=== PATIENT | female | born 1990 | race Caucasian/White ===

== ENCOUNTER 2017-04-13 04:21 | Emergency (ER) | payer MEDICAID ==
[~2017-04-13] VITALS: Ht 167.6 cm; Wt 55.0 kg
[~2017-04-13 04:21] MED LIST: ALPR1 PO; CHLO25 PO; HYDR50 PO; OXYC15TA PO
[2017-04-13 04:23] VITALS: BP 149/84; PULSE 84; RESP 18; O2SAT 97
[2017-04-13] MEDS ORDERED: LORA-475 PO (04:31)
[2017-04-13] MEDS ORDERED: SERO50TA PO (04:31)
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
[2017-04-13] MEDS ORDERED: levETIRAcetam 500 MG TAB PO ONE (04:45)
[2017-04-13] MEDS ORDERED: LORazepam 1 MG TAB PO ONE (04:45)
[2017-04-13 06:54] LABS: AUTOMATED NEUTROPHIL # 5.4 TH/MM3 (1.8-7.7); BASOPHIL % 0.3 % (0.0-2.0); EOSINOPHIL % 0.1 % (0.0-4.0); HEMATOCRIT 40.5 % (35.0-46.0); HEMO FLAGS DIFF FINAL; MEAN CELL VOLUME 89.2 FL (80.0-100.0); MEAN CORPUSCULAR HEMOGLOBIN 30.2 PG (27.0-34.0); MEAN CORPUSCULAR HGB CONC 33.9 % (32.0-36.0); NEUT % 68.6 % (16.0-70.0); PLATELET COUNT 192 TH/MM3 (150-450); RED BLOOD COUNT 4.54 MIL/MM3 (4.00-5.30); WHITE BLOOD COUNT 7.8 TH/MM3 (4.0-11.0)
[2017-04-13 07:23] LABS: ANION GAP 9 MEQ/L (5-15); AST (GOT) 23 U/L (15-37); BICARBONATE 24.9 MEQ/L (21.0-32.0); BLOOD UREA NITROGEN 3 MG/DL (7-18); CHLORIDE 111 MEQ/L (98-107); GLOMERULAR FILTRATION RATE 122 ML/MIN (>89); SODIUM (NA) 145 MEQ/L (136-145)
[2017-04-13] MEDS ORDERED: LEVE250 PO (07:25)
[2017-04-13 07:27] LABS: ALKALINE PHOSPHATASE 85 U/L (45-117); ALT (GPT) 32 U/L (10-53); TOTAL BILIRUBIN ADULT 0.7 MG/DL (0.2-1.0)
[2017-04-13 09:42] VITALS: BP 121/78; PULSE 100; RESP 16; O2SAT 100
== END 2017-04-13 11:33 | disposition home or self-care (01) ==
LOC: NEPE 04:21
DX: R56.9 Unspecified convulsions (principal)
CPT/HCPCS: 80053; 80307; 84703; 85025; 99283

== ENCOUNTER 2017-07-04 19:23 | Emergency (ER) | payer MEDICAID ==
[~2017-07-04] VITALS: Ht 167.6 cm; Wt 55.0 kg
[~2017-07-04 19:23] MED LIST changes: -ALPR1 PO; -CHLO25 PO; -HYDR50 PO; +LEVE250 PO; +LORA-475 PO; -OXYC15TA PO; +SERO50TA PO
[2017-07-04 19:27] VITALS: BP 135/94; PULSE 98; RESP 22; O2SAT 98
[2017-07-04] MEDS ORDERED: CLON0.5T PO (19:37)
[2017-07-04 19:38] VITALS: O2SAT 99
[2017-07-04] MEDS ORDERED: ONDANSETRON HCL 4 MG/2 ML VIAL IV ONE ×2 (19:45→22:00)
[2017-07-04] MEDS ORDERED: SODIUM CHLOR 0.9% 1000 ML INJ 1,000 ML IV ONE (19:45)
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
--- NOTE | 2017-07-04 20:20 | RADRPT ---
EXAM DATE/TIME: 07/04/2017 19:53 [facility] COMPARISON: No previous studies available for comparison. INDICATIONS : Cough. MEDICAL HISTORY : None. SURGICAL HISTORY : None. ENCOUNTER: Initial ACUITY: 1 day PAIN SCORE: 0/10 LOCATION: Bilateral chest FINDINGS: A single view of the chest demonstrates the lungs to be symmetrically aerated without evidence of mas s, infiltrate or effusion. The cardiomediastinal contours are unremarkable. Osseous structures are intact. CONCLUSION: No evidence of acute cardiopulmonary disease. Alphonse Loyd MD on July 04, 2017 at 20:18 Board Certified Radiologist. This report was verified electronically.
[2017-07-04 20:30] LABS: AUTOMATED NEUTROPHIL # 5.1 TH/MM3 (1.8-7.7); BASOPHIL % 0.6 % (0.0-2.0); EOSINOPHIL # 0.1 TH/MM3 (0-0.4); EOSINOPHIL % 1.8 % (0.0-4.0); HEMO FLAGS DIFF FINAL; LYMPH % 27.7 % (9.0-44.0); LYMPHOCYTE # 2.2 TH/MM3 (1.0-4.8); MEAN CELL VOLUME 87.9 FL (80.0-100.0); MEAN CORPUSCULAR HEMOGLOBIN 30.1 PG (27.0-34.0); MEAN CORPUSCULAR HGB CONC 34.3 % (32.0-36.0); MONO % 5.2 % (0.0-8.0); NEUT % 64.7 % (16.0-70.0); PLATELET COUNT 190 TH/MM3 (150-450); RED BLOOD COUNT 4.66 MIL/MM3 (4.00-5.30); RED CELL DISTRIBUTION WIDTH 13.8 % (11.6-17.2); WHITE BLOOD COUNT 7.8 TH/MM3 (4.0-11.0)
[2017-07-04 20:39] LABS: ANION GAP 10 MEQ/L (5-15); APTT (PATIENT) 25.7 SEC (24.3-30.1); PROTHROMBIN TIME - PATIENT 11.4 SEC (9.8-11.6)
[2017-07-04 20:48] LABS: ALKALINE PHOSPHATASE 64 U/L (45-117); ALT (GPT) 91 U/L (10-53); AST (GOT) 52 U/L (15-37); BICARBONATE 24.2 MEQ/L (21.0-32.0); BLOOD UREA NITROGEN 8 MG/DL (7-18); CHLORIDE 106 MEQ/L (98-107); GLOMERULAR FILTRATION RATE 81 ML/MIN (>89); POTASSIUM 3.2 MEQ/L (3.5-5.1); SODIUM (NA) 140 MEQ/L (136-145); TOTAL BILIRUBIN ADULT 1.4 MG/DL (0.2-1.0)
[2017-07-04 20:49] LABS: ACETAMINOPHEN LESS THAN 2.0 MCG/ML (10.0-30.0); ALCOHOL LESS THAN 3 MG/DL (0-5)
[2017-07-04 21:00] VITALS: BP 122/69; PULSE 89; RESP 15; O2SAT 98
[2017-07-04] MEDS ORDERED: ACETAMINOPHEN 325 MG TAB PO ONE (22:00)
[2017-07-04] MEDS ORDERED: POTASSIUM CHLORIDE 20 MEQ CONTROLLED RELEASE TAB PO ONE (22:30)
[2017-07-04 23:00] VITALS: BP 111/65; PULSE 88; RESP 15; O2SAT 99
--- NOTE | 2017-07-05 15:07 | EKG ---
Date Performed: 07/04/2017 Time Performed: 19:33:24 PTAGE: 27 years EKG: Sinus rhythm NORMAL ECG PREVIOUS TRACING : 03/21/2012 10.31 Compared to prior tracing no significant change DOCTOR: Macho Wilson Interpretating Date/Time 07/05/2017 15:05:16
== END 2017-07-05 | disposition home or self-care (01) ==
LOC: NEPE 19:23
DX: T40.601A Poisoning by unspecified narcotics, accidental (unintentional), initial encounter (principal)
CPT/HCPCS: 71010; 80053; 80307; 84703; 85025; 85610; 85730; 93005; 96361; 96374; 96376; 99285; J2405; J7030

== ENCOUNTER 2017-09-12 03:26 | Emergency (ER) | payer SELFPAY ==
[~2017-09-12] VITALS: Ht 170.2 cm; Wt 60.0 kg
[~2017-09-12 03:26] MED LIST changes: +CLON0.5T PO; -LEVE250 PO; -LORA-475 PO; -SERO50TA PO
[2017-09-12 03:45] VITALS: BP 129/76; PULSE 130; RESP 28; TEMP 98.7; O2SAT 95
[2017-09-12 03:53] VITALS: BP 129/77; PULSE 104; RESP 18; O2SAT 98
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
[2017-09-12 04:35] VITALS: RESP 18; O2SAT 100
[2017-09-12] MEDS ORDERED: SODIUM CHLORIDE 0.9% FLUSH 10 ML FLUSH IVF PRN (04:45)
[2017-09-12 04:48] LABS: AUTOMATED NEUTROPHIL # 3.5 TH/MM3 (1.8-7.7); BASOPHIL % 0.5 % (0.0-2.0); EOSINOPHIL # 0.1 TH/MM3 (0-0.4); EOSINOPHIL % 0.9 % (0.0-4.0); HEMATOCRIT 49.4 % (35.0-46.0); HEMO FLAGS DIFF FINAL; LYMPH % 46.2 % (9.0-44.0); LYMPHOCYTE # 3.3 TH/MM3 (1.0-4.8); MEAN CELL VOLUME 90.2 FL (80.0-100.0); MEAN CORPUSCULAR HEMOGLOBIN 30.4 PG (27.0-34.0); MEAN CORPUSCULAR HGB CONC 33.7 % (32.0-36.0); MONO % 4.2 % (0.0-8.0); NEUT % 48.2 % (16.0-70.0); PLATELET COUNT 228 TH/MM3 (150-450); RED BLOOD COUNT 5.48 MIL/MM3 (4.00-5.30); WHITE BLOOD COUNT 7.2 TH/MM3 (4.0-11.0)
[2017-09-12 05:06] LABS: ALKALINE PHOSPHATASE 66 U/L (45-117); TOTAL BILIRUBIN ADULT 0.6 MG/DL (0.2-1.0)
[2017-09-12 05:32] LABS: ALT (GPT) 70 U/L (10-53); AST (GOT) 65 U/L (15-37); BICARBONATE 23.5 MEQ/L (21.0-32.0); BLOOD UREA NITROGEN 5 MG/DL (7-18); SODIUM (NA) 145 MEQ/L (136-145)
[2017-09-12 05:33] LABS: ANION GAP 11 MEQ/L (5-15); CHLORIDE 111 MEQ/L (98-107); GLOMERULAR FILTRATION RATE 89 ML/MIN (>89)
[2017-09-12 05:36] LABS: ACETAMINOPHEN LESS THAN 2.0 MCG/ML (10.0-30.0); ALCOHOL 393 MG/DL (0-5); POTASSIUM 4.2 MEQ/L (3.5-5.1)
[2017-09-12 07:11] VITALS: BP 100/61; PULSE 106; RESP 17; O2SAT 100
--- NOTE | 2017-09-12 11:28 | PD ---
Data Data Last Documented VS Vital Signs Date Time Temp Pulse Resp B/P (MAP) Pulse Ox O2 Delivery O2 Flow Rate FiO2 09/12/17 07:11 106 17 100/61 (74) 100 Room Air 09/12/17 03:45 98.7 8.00 Orders Orders Complete Blood Count With Diff (09/12/17 04:31) Comprehensive Metabolic Panel (09/12/17 04:31) Iv Access Insert/Monitor (09/12/17 04:31) Ecg Monitoring (09/12/17 04:31) Oximetry (09/12/17 04:31) Sodium Chloride 0.9% Flush (Ns Flush) (09/12/17 04:45) Drug Screen, Random Urine (09/12/17 04:31) Alcohol (Ethanol) (09/12/17 04:31) Salicylates (Aspirin) (09/12/17 04:31) Tylenol (Acetaminophen) (09/12/17 04:31) Restraints Non-Violent YAN.Q3H (09/12/17 06:29) Ed Discharge Order (09/12/17 11:27) Labs Laboratory Tests Test 09/12/17 03:35 09/12/17 03:40 White Blood Count 7.2 TH/MM3 Red Blood Count 5.48 MIL/MM3 Hemoglobin 16.6 GM/DL Hematocrit 49.4 % Mean Corpuscular Volume 90.2 FL Mean Corpuscular Hemoglobin 30.4 PG Mean Corpuscular Hemoglobin Concent 33.7 % Red Cell Distribution Width 14.0 % Platelet Count 228 TH/MM3 Mean Platelet Volume 8.6 FL Neutrophils (%) (Auto) 48.2 % Lymphocytes (%) (Auto) 46.2 % Monocytes (%) (Auto) 4.2 % Eosinophils (%) (Auto) 0.9 % Basophils (%) (Auto) 0.5 % Neutrophils # (Auto) 3.5 TH/MM3 Lymphocytes # (Auto) 3.3 TH/MM3 Monocytes # (Auto) 0.3 TH/MM3 Eosinophils # (Auto) 0.1 TH/MM3 Basophils # (Auto) 0.0 TH/MM3 CBC Comment DIFF FINAL Differential Comment Blood Urea Nitrogen 5 MG/DL Creatinine 0.79 MG/DL Random Glucose 80 MG/DL Total Protein 8.1 GM/DL Albumin 4.1 GM/DL Calcium Level 8.6 MG/DL Alkaline Phosphatase 66 U/L Aspartate Amino Transf (AST/SGOT) 65 U/L Alanine Aminotransferase (ALT/SGPT) 70 U/L Total Bilirubin 0.6 MG/DL Sodium Level 145 MEQ/L Potassium Level 4.2 MEQ/L Chloride Level 111 MEQ/L Carbon Dioxide Level 23.5 MEQ/L Anion Gap 11 MEQ/L Estimat Glomerular Filtration Rate 89 ML/MIN Salicylates Level LESS THAN 1.7 MG/DL Acetaminophen Level LESS THAN 2.0 MCG/ML Ethyl Alcohol Level 393 MG/DL Urine Opiates Screen NEG Urine Barbiturates Screen NEG Urine Amphetamines Screen NEG Urine Benzodiazepines Screen POS Urine Cocaine Screen NEG Urine Cannabinoids Screen NEG MDM Supervised Visit with DAVIAN: Yes Narrative Course intoxication, reoslved, D/c's from the ED Diagnosis Primary Impression: Altered mental status Qualified Codes: R41.82 - Altered mental status, unspecified Additional Impressions: Alcohol intoxication Qualified Codes: F10.929 - Alcohol use, unspecified with intoxication, unspecified Agitation Ref[facility] Patient Instructions: General Instructions, Alcohol Intoxication (ED) Departure Forms: Tests/Procedures Disposition: 01 DISCHARGE HOME Condition: Stable Kendall Abrams MD Sep 12, 2017 11:28
== END 2017-09-12 11:39 | disposition home or self-care (01) ==
LOC: NEPC 03:26
DX: R41.82 Altered mental status, unspecified (principal); F10.129 Alcohol abuse with intoxication, unspecified; R45.1 Restlessness and agitation; F41.9 Anxiety disorder, unspecified; R56.9 Unspecified convulsions; G40.909 Epilepsy, unspecified, not intractable, without status epilepticus; F19.10 Other psychoactive substance abuse, uncomplicated; Z72.0 Tobacco use
CPT/HCPCS: 80053; 80307; 85025; 99285